=== PATIENT | female | born 1995 | race Caucasian/White ===

== ENCOUNTER 2018-03-11 17:00 | Outpatient (RCR) | payer OTHER ==
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
[~2018-03-11 17:00] MED LIST: ADAP45GE TP; ALBU8.5H IH; DESO15CR2 TP; DIPH-616 PO; DOXY-179 PO; FLUT12HF2 IH; LEVO1TAB33 PO; SPIR50TA33 PO
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
== END 2018-03-11 18:00 | disposition home or self-care (01) ==
LOC: PT 17:00
PROVIDERS: ATTEND Internal Medicine
DX: M54.5 Low back pain (principal); M54.2 Cervicalgia; R51 Headache; V89.2XXA Person injured in unspecified motor-vehicle accident, traffic, initial encounter
CPT/HCPCS: 97162

== ENCOUNTER → 2018-04-02 | Outpatient (CLI) | payer OTHER ==
[~2018-04-02] MED LIST changes: +CLIN30GE15 TP; +HYDR30CR10 TP; +TRET20CR37 TP; +TRIA15OI20 TP
== END ==
LOC: LAB 14:53
PROVIDERS: ATTEND Nurse Practitioner
DX: L70.9 Acne, unspecified (principal); Z79.899 Other long term (current) drug therapy
CPT/HCPCS: 36415; 82040; 82247; 82310; 82374; 82435; 82565; 82947; 84075; 84132; 84155; 84295; 84450; 84460; 84520

== ENCOUNTER → 2018-09-17 | Outpatient (CLI) | payer OTHER ==
[~2018-09-17] MED LIST changes: +BENZCLINPT TOP
== END ==
LOC: LAB 15:49
PROVIDERS: ATTEND Nurse Practitioner
DX: L70.0 Acne vulgaris (principal)
CPT/HCPCS: 36415; 82040; 82247; 82310; 82374; 82435; 82565; 82947; 84075; 84132; 84155; 84295; 84450; 84460; 84520

== ENCOUNTER 2018-11-09 12:53 | Emergency (ER) | payer OTHER ==
[~2018-11-09 12:53] MED LIST changes: -HYDR-653 PO
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
[2018-11-09] MEDS ORDERED: NS(*) 0.9% 1000 ML BAG 1,000 ML IV ONE (13:02)
[2018-11-09] MEDS ORDERED: ONDANSETRON 4 MG/2 ML VIAL IVP ONE (13:05)
[2018-11-09] MEDS ORDERED: fentaNYL CITR 100 MCG/2 ML AMP IVP ONE (13:05)
[2018-11-09 13:20] LABS: PLATELET COUNT, AUTOMATED 430 K/uL (150-450)
[2018-11-09] MEDS ORDERED: IOPAMIDOL 76% 100 ML INFUS BTL 100 ML ONE (13:31)
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
[2018-11-09] MEDS ORDERED: fentaNYL CITR 100 MCG/2 ML AMP ONE (15:10)
[2018-11-09] MEDS ORDERED: HYDR-653 PO (15:12)
[2018-11-09 15:30] VITALS: BP 126/87
[2018-11-10] MEDS ORDERED: HYDR-653 PO (14:25)
== END 2018-11-09 15:48 | disposition home or self-care (01) ==
LOC: ER 13:02
DX: M54.2 Cervicalgia (principal); V49.60XA Unspecified car occupant injured in collision with unspecified motor vehicles in traffic accident, initial encounter
CPT/HCPCS: 70450; 71260; 72125; 72129; 72132; 74177; 83605; 83690; 84703; 85025; 96361; 96374; 96375; 99284; J2405; J3010; J7030; L0120; Q9967; 82040; 82247; 82310; 82374; 82435; 82565; 82947; 84075; 84132; 84155; 84295; 84450; 84460; 84520

== ENCOUNTER → 2018-11-09 | Outpatient (CLI) | payer OTHER ==
[~2018-11-09] MED LIST changes: +ADV230RPT INH; +AZEL137S NS; +HYDR-653 PO; +MONT10TA PO
== END ==
LOC: AMB 12:29
PROVIDERS: ATTEND Nurse Practitioner
DX: M54.9 Dorsalgia, unspecified (principal); M54.2 Cervicalgia; V49.60XA Unspecified car occupant injured in collision with unspecified motor vehicles in traffic accident, initial encounter
CPT/HCPCS: A0425; A0427